=== PATIENT | female | born 1940 | race Caucasian/White ===

== ENCOUNTER → 2017-07-15 | Outpatient (CLI) | payer OTHER ==
--- NOTE | 2017-08-02 10:37 | RSPPFT ---
DATE OF PROCEDURE: 07/15/17 COMMENTS: VOLUMES DYNAMIC: FVC and FEV1 normal. STATIC: FRC and RV mildly decreased, TLC normal. FLOWS: FEV1% mildly reduced; FEF 25-75 moderately reduced. DIFFUSION: Moderately reduced. FLOW VOLUME LOOP: Pattern of variable intrathoracic airways obstruction. IMPRESSION: Mild obstructive ventilatory defect with no significant hyperinflation. There is a severe reduction in diffusion and an increase in airways resistance. There is no improvement post-bronchodilator.
== END ==
LOC: PHRSP 07:24
PROVIDERS: ATTEND Internal Medicine
DX: J44.9 Chronic obstructive pulmonary disease, unspecified (principal); R05 Cough
CPT/HCPCS: 94060; 94620; 94726; 94729